=== PATIENT | female | born 1945 | race Caucasian/White ===

== ENCOUNTER → 2016-05-16 | Outpatient (CLI) | payer OTHER, MEDICARE | LOC: FIMAGING 13:50 | PROVIDERS: ATTEND Family Medicine | DX: S52.125A Nondisplaced fracture of head of left radius, initial encounter for closed fracture (principal); V18.0XXA Pedal cycle driver injured in noncollision transport accident in nontraffic accident, initial encounter; M67.922 Unspecified disorder of synovium and tendon, left upper arm; Y93.55 Activity, bike riding ==

== ENCOUNTER → 2016-09-20 | Outpatient (CLI) | payer OTHER, MEDICARE | LOC: FIMAGING 10:32 | PROVIDERS: ATTEND Family Medicine | DX: Z12.31 Encounter for screening mammogram for malignant neoplasm of breast (principal); Z80.3 Family history of malignant neoplasm of breast | CPT/HCPCS: G0202 ==

== ENCOUNTER → 2017-10-22 | Outpatient (CLI) | payer OTHER, MEDICARE | LOC: FIMAGING 11:43 | PROVIDERS: ATTEND Family Medicine | DX: Z12.31 Encounter for screening mammogram for malignant neoplasm of breast (principal); Z80.3 Family history of malignant neoplasm of breast; Z13.820 Encounter for screening for osteoporosis; M85.89 Other specified disorders of bone density and structure, multiple sites ==

== ENCOUNTER → 2018-01-13 | Outpatient (CLI) | payer OTHER, MEDICARE | LOC: FIMAGING 12:52 | PROVIDERS: ATTEND Family Medicine | DX: M19.041 Primary osteoarthritis, right hand (principal) ==

== ENCOUNTER → 2018-05-20 | Outpatient (CLI) | payer OTHER, MEDICARE | LOC: FLAB 12:26 | PROVIDERS: ATTEND Family Medicine | DX: R91.8 Other nonspecific abnormal finding of lung field (principal); R05 Cough; Z90.2 Acquired absence of lung [part of] ==

== ENCOUNTER → 2018-06-16 | Outpatient (CLI) | payer OTHER, MEDICARE | LOC: FIMAGING 15:12 | PROVIDERS: ATTEND Internal Medicine Infectious Disease | DX: O31.0 Papyraceous fetus (principal); A31.0 Pulmonary mycobacterial infection; O99.519 Diseases of the respiratory system complicating pregnancy, unspecified trimester; J47.9 Bronchiectasis, uncomplicated; Z3A.00 Weeks of gestation of pregnancy not specified ==

== ENCOUNTER 2018-08-01 12:05 | Emergency (ER) | payer OTHER, MEDICARE | END 2018-08-01 15:09 | disposition home or self-care (01) ==